=== PATIENT | male | born 1985 | race Caucasian/White ===

== ENCOUNTER 2016-09-10 08:39 | Day surgery (SDC) | payer OTHER ==
[2016-09-10] VITALS (8 sets, daily range): BP systolic 92–145; BP diastolic 53–88; PULSE 71–96; TEMP 98.2–98.4
[~2016-09-10] VITALS: Ht 190.5 cm; Wt 128.3 kg
[2016-09-10] MEDS ORDERED: PROAIR HFA0.09 MG/AC IH (09:46)
[2016-09-10] MEDS ORDERED: PRILOSEC 20MG20 MG PO (09:46)
[2016-09-10] MEDS ORDERED: INHALER (09:47)
[2016-09-10] MEDS ORDERED: DIFLUCAN 100MG100 MG PO (12:39)
== END 2016-09-10 13:10 | disposition home or self-care (01) ==
LOC: SDCO 08:39
DX: R06.02 Shortness of breath (principal); R05 Cough; R07.89 Other chest pain
CPT/HCPCS: J0456; J1450; J2704; J2920; J7050

== ENCOUNTER → 2016-11-07 | Outpatient (CLI) | payer OTHER ==
[~2016-11-07] MED LIST: DIFLUCAN 100MG100 MG PO; INHALER; PRILOSEC 20MG20 MG PO; PROAIR HFA0.09 MG/AC IH
== END ==
LOC: ZCOL.LAB 17:18
DX: J31.2 Chronic pharyngitis (principal)